=== PATIENT | male | born 1980 ===

== ENCOUNTER 2016-06-12 21:24 | Emergency (ER) | payer OTHER ==
[~2016-06-12] VITALS: Ht 170.2 cm; Wt 120.2 kg
--- NOTE | 2016-06-12 22:02 | ED GENERAL ADULT ---
History of Present Illness General Chief Complaint: General Adult Stated Complaint: "HERE TO GET MY BLOOD PRESSURE CHECKED" Source: patient Exam Limitations: no limitations Triage Note: PT STATES THAT HE WAS SEEN AT [facility] FOR COUGH AND THEY NOTED HIS BP WAS ELEVATED, MANUAL AT THIS TIME 198/96 , DENIES CP/AVELAR, PT WAS ON BP MEDS BUT HIS PMD TOOK HIM OFF THEM 3 YEARS AGO. Triage Nurses Notes Reviewed? yes HPI: Patient is a 36-year-old male who has come to the ED due to elevated pressure ( 188/110) this evening detected at the minute clinic at [facility]. He was there for the cough and yellowish sputum that he has had for about a week. He was found to be hypertensive as well as sent to the ED. Patient has a history of hypertension in the past but stopped taking medications decided by his PCP Dr. Kieran Knox in [place], as he had low blood pressures at that time. Since then he has had fluctuating low and high blood pressures and has not taken any medications. He does not remember what medication he used For his productive cough he has used Benadryl, Mucinex, Tylenol, ibuprofen and amoxicillin and his symptoms has not improved. Denies fever or chills, myalgia, fatigue, shortness of breath, abdominal pain, diarrhea. Reports his kids had similar symptoms about 2 weeks ago. Has not taken the flu shot (VIRI MICHELLE,[facility]) Vital Signs & Intake/Output Vital Signs & Intake/Output Vital Signs Date Time Temp Pulse Resp B/P Pulse O2 O2 Flow FiO2 Ox Delivery Rate 06/12 2327 98.2 96 18 151/93 99 06/12 2255 97.9 94 198/96 06/127 97.9 94 16 198/96 98 Room Air ED Intake and Output 06/13 0000 06/12 1200 Intake Total 0 Output Total Balance 0 Intake, Oral 0 Patient 120.202 kg Weight Allergies Coded Allergies: No Known Allergies (06/12/16) Reconcile Medications Lisinopril 20 MG TABLET 1 TAB PO DAILY HTN (JONATHAN WOLF DO) Past History Travel History Traveled to [place] past 21 day No Medical History Any Pertinent Medical History? see below for history Neurological: NONE EENT: NONE Cardiovascular: hypertension Respiratory: NONE Gastrointestinal: peptic ulcer disease, UGIB several years ago Hepatic: NONE Renal: NONE Musculoskeletal: NONE Psychiatric: NONE Endocrine: NONE Blood Disorders: NONE Cancer(s): NONE SOLO TRUCK DRIVER/Reproductive: NONE Surgical History Surgical History: non-contributory Psychosocial History What is your primary language Bermudian Tobacco Use: Never used ETOH Use: denies use Illicit Drug Use: denies illicit drug use Family History Family History, If Any: FATHER FH: HTN (hypertension) Hx Contributory? Yes (EMILIE MEREDITH MD) Review of Systems Review of Systems Constitutional: Denies: chills, fever, weakness. EENTM: Reports: nasal congestion. Denies: visual changes, eye drainage, throat pain. Respiratory: Reports: cough, sputum production. Denies: short of breath. Cardiovascular: Denies: chest pain, palpitations, peripheral edema. GI: Denies: abdominal pain, changes in stool. Genitourinary: Denies: dysuria, frequency, hematuria. Musculoskeletal: Denies: back pain. Skin: Reports: no symptoms. Neurological/Psychological: Denies: headache, weakness. Hematologic/Endocrine: Denies: bruising, bleeding, polyuria. (EMILIE MEREDITH MD) Physical Exam Physical Exam General Appearance: well developed/nourished, no apparent distress, alert, awake , comfortable Head: atraumatic, normal appearance Eyes: Bilateral: normal appearance, PERRL, EOMI. Ears, Nose, Throat: normal pharynx, normal ENT inspection, hearing grossly normal Neck: normal inspection, supple, full range of motion Respiratory: normal breath sounds, chest non-tender, no respiratory distress Cardiovascular: regular rate/rhythm Peripheral Pulses: 2+ radial (R), 2+ radial (L) Gastrointestinal: normal bowel sounds, soft, non-tender Back: no vertebral tenderness Extremities: normal inspection, normal capillary refill, normal range of motion, no edema Neurologic/Psych: no motor/sensory deficits, awake, alert, oriented x 3 Skin: intact Core Measures ACS in differential dx? No CVA/TIA Diagnosis: No Severe Sepsis Present: No (EMILIE MEREDITH MD) Core Measures Septic Shock Present: No (JONATHAN WOLF DO) Progress Differential Diagnoses I considered the following diagnoses in my evaluation of the patient: [ hypertensive urgency, upper respiratory tract infection] Initial ED EKG: none (EMILIE MEREDITH MD) Plan of Care: Orders Procedure Date/time Status BASIC ELECTROLYTES PLUS BUN&CR 06/12 2227 Complete Laboratory Tests 06/12/16 2309: Anion Gap 11, Estimated GFR > 60, BUN/Creatinine Ratio 15.0 Departure Departure Condition: Stable Referrals: Ousmane KNOX MD (PCP/Family) Departure Forms: Customer Survey General Discharge Information (VIRI MICHELLE,EMILIE) Departure Disposition: STILL A PATIENT Clinical Impression Primary Impression: Hypertension Prescriptions: Current Visit Scripts Lisinopril 1 TAB PO DAILY #20 TAB Resident Co-Sign Statement Statement: ED Attending supervision documentation- [x] I saw and evaluated the patient. I have also reviewed all the pertinent lab results and diagnostic results. I agree with the findings and the plan of care as documented in the Resident's documentation. [] I have reviewed the ED Record and agree with the Resident's documentation. [] Additions or exceptions (if any) to the Resident's note and plan are summarized below: [] I have seen and personally examined the patient and I agree with the resident's evaluation. No chest pain no shortness of breath. Seen at [facility] for bronchitis. Found to have elevated blood pressure. He has asymptomatic hypertension. He's been on antihypertensives in the past. Renal function was evaluated and was normal. He was started on lisinopril. He will follow-up with a [facility] faculty practice physician on Wednesday and have his blood pressure rechecked. (JONATHAN WOLF DO) Critical Care Note Critical Care Note Critical Care Time: non-applicable (JONATHAN WOLF DO)
[2016-06-12] MEDS ORDERED: LISINOPRIL20 M1 PO (23:21)
[2016-06-12 23:27] VITALS: BP 151/93
== END 2016-06-12 23:52 ==
LOC: ERH 21:24
DX: I10 Essential (primary) hypertension (principal); R05 Cough
CPT/HCPCS: 82436

== ENCOUNTER 2017-07-05 01:19 | Emergency (ER) | payer OTHER ==
[~2017-07-05 01:19] MED LIST: LISINOPRIL20 M1 PO
--- NOTE | 2017-07-05 02:26 | RADIOLOGY REPORT ---
EXAMINATION: XR CHEST CLINICAL INFORMATION: Cough COMPARISON: None TECHNIQUE: 2 views of the chest were obtained. FINDINGS: The lungs are well expanded. There is no focal consolidation, edema, or effusion. No pneumothorax. The cardiomediastinal silhouette is within normal limits. No acute osseous abnormality. IMPRESSION: No acute pulmonary findings.
--- NOTE | 2017-07-05 04:22 | ED DYSPNEA/ASTHMA COMPLAINT ---
History of Present Illness General Chief Complaint: Upper Respiratory Sx/Fever Stated Complaint: COUGH Source: patient Exam Limitations: no limitations Vital Signs & Intake/Output Vital Signs & Intake/Output Vital Signs Date Time Temp Pulse Resp B/P B/P Pulse O2 O2 Flow FiO2 Mean Ox Delivery Rate 07/05 0157 98.4 97 22 168/99 97 Allergies Coded Allergies: No Known Allergies (06/12/16) Reconcile Medications Albuterol Sulfate (Proair Hfa) 90 MCG HFA.AER.AD 2 PUF INH Q4-6 PRN PRN sob ( Reported) Azithromycin 250 MG TABLET 1 DP PO AD bronchitis (Reported) 2 the first day followed by 1 for days 2-5 Benzonatate 100 MG CAPSULE 1 CAP PO TID cough (Reported) Lisinopril 20 MG TABLET 1 TAB PO DAILY HTN Prednisone (Deltasone) 20 MG TABLET 3 TAB PO DAILY WHEEZING BEGIN TOMORROW Triage Note: PER PT COUGH FOR> WEEK SEEN AT WALK IN GIVEN TESSALON PERLES WITHOUT EFFECT ALSO ON INHALER AND AZITHROMYCIN ALL WITHOUT EFFECT. CONT WITH COUGH AND SOB. Triage Nurses Notes Reviewed? yes Onset: Gradual Duration: day(s):, continues in ED, intermittent, waxing and waning Severity: mild, moderate Activities at Onset: none HPI: Patient presents for evaluation of worsening dyspnea since last weekend. Patient states that he has had a nonproductive cough and chest tightness over that time. He was evaluated in a walk-in center on Wednesday and began a metered-dose inhaler antibiotics and Tessalon Perles. Patient states that his symptoms have not improved. Past History Travel History Traveled to [place] past 21 day No Medical History Any Pertinent Medical History? 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 No Review of Systems Review of Systems Constitutional: Reports: no symptoms. EENTM: Reports: no symptoms. Respiratory: Reports: see HPI. Cardiovascular: Reports: no symptoms. GI: Reports: no symptoms. Genitourinary: Reports: no symptoms. Musculoskeletal: Reports: no symptoms. Skin: Reports: no symptoms. Neurological/Psychological: Reports: no symptoms. Hematologic/Endocrine: Reports: no symptoms. Immunologic/Allergic: Reports: no symptoms. All Other Systems: Reviewed and Negative Physical Exam Physical Exam Respiratory: SEE BELOW Comments: Gen.: Well-nourished, well-developed, no acute respiratory distress. Head: Normocephalic, atraumatic. Eyes: Normal inspection bilaterally Ears: Normal inspection bilaterally Nose: Normal inspection Throat/mouth : Moist mucosa Neck: Supple, full range of motion, no goiter Heart: Regular rate and rhythm, no murmurs rubs or gallops Lungs: Diminished air entry bilaterally with scattered wheezes Chest: Nontender Back: Normal range of motion Abdomen: Soft, nontender, nondistended, normal bowel sounds Extremities: Normal range of motion grossly, equal radial pulses, no cyanosis clubbing or edema Neurologic: Cranial nerves grossly intact, speech is clear Skin: warm and dry Psychiatric: Calm, cooperative, no apparent delusions or hallucinations Core Measures ACS in differential dx? No CVA/TIA Diagnosis No Sepsis Present: No Sepsis Focused Exam Completed? No Progress Differential Diagnosis: asthma, bronchitis, CHF, COPD, pneumonia Plan of Care: Current Medications Sig/Pj Start time Last Medication Dose Stop Time Status Admin Albuterol Sulfate 3 ML ONCE ONE 07/05 429 UNVr (Proventil) 07/05 430 Ipratropium [place] 2.5 ML ONCE ONE 07/05 429 UNVr (Atrovent) 07/05 430 Prednisone 60 MG ONCE ONE 07/05 429 UNVr 07/05 430 Initial ED EKG: none Departure Departure Disposition: HOME OR SELF CARE Condition: Stable Clinical Impression Primary Impression: Asthmatic bronchitis Qualifiers: Asthma severity: moderate Asthma persistence: persistent Asthma complication type: uncomplicated Qualified Code: J45.40 - Moderate persistent asthma, uncomplicated Referrals: Ousmane Agudelo MD (PCP/Family) Additional Instructions: Continue your current medications as prescribed. Add prednisone as prescribed. Follow-up with your primary care physician this week for reevaluation. Rest, no exertion. Return if any concerns or sudden worsening. Thank you for choosing the [facility] for your care. It was a pleasure to serve you today. Job Martinez M.D. [facility] Departure Forms: Customer Survey General Discharge Information Prescriptions: Current Visit Scripts Prednisone (Deltasone) 3 TAB PO DAILY #12 TAB BEGIN TOMORROW Critical Care Note Critical Care Note Critical Care Time: non-applicable
[2017-07-05] MEDS ORDERED: DELTASONE20 MG PO (04:31)
[2017-07-05 05:54] VITALS: BP 177/85
[2017-07-05] MEDS ORDERED: AZITHROMYCIN250 M1 PO (05:59)
[2017-07-05] MEDS ORDERED: BENZONATATE100 M1 PO (05:59)
[2017-07-05] MEDS ORDERED: PROAIR HFA8.5 GM INH (06:00)
== END 2017-07-05 06:00 ==
LOC: ERH 01:19
DX: J45.909 Unspecified asthma, uncomplicated (principal); R07.89 Other chest pain
CPT/HCPCS: 1263; 1395; 71046

== ENCOUNTER 2018-01-18 09:31 | Emergency (ER) | payer OTHER ==
[~2018-01-18] VITALS: Ht 172.7 cm; Wt 131.5 kg
[~2018-01-18 09:31] MED LIST changes: +AZITHROMYCIN250 M1 PO; +BENZONATATE100 M1 PO; +DELTASONE20 MG PO; +PROAIR HFA8.5 GM INH
[2018-01-18 09:37] VITALS: BP 138/89
--- NOTE | 2018-01-18 10:12 | ED GENERAL ADULT ---
History of Present Illness General Chief Complaint: Lower Extremity Problems Stated Complaint: PAIN RADIATING FROM LOWER BACK TO RIGHT LEG Source: patient Exam Limitations: no limitations Vital Signs & Intake/Output Vital Signs & Intake/Output Vital Signs Date Time Temp Pulse Resp B/P B/P Pulse O2 O2 Flow FiO2 Mean Ox Delivery Rate 01/18 0937 96.4 97 15 138/89 95 Room Air Room Air Allergies Coded Allergies: No Known Allergies (01/18/18) Reconcile Medications Lisinopril 20 MG TABLET 1 TAB PO DAILY HTN Triage Note: PT TO ED FOR C/C OF R LEG "PINCHING" FEELING IN BACK OF R THIGH AND ALSO LOWER R BACK PAIN AND NOW PAIN IS TRAVELING DOWN BACK OF THIGH TO CALF. Triage Nurses Notes Reviewed? yes HPI: Patient is a 37-year-old male with past medical history of hypertension on lisinopril, with no history of sciatica, lumbar issues, radiculopathy, DVT, PE, coagulopathy, or tobacco abuse, who presents today with right lower extremity pain. He states that the pain has been present for several days and is dull in nature, radiating from his right gluteus down through his hamstring and into his calf region. He denies any recent long travel, immobility, unilateral lower extremity edema, dyspnea, or any other symptoms classic for DVT. Upon my initial encounter the patient is anxious but otherwise well-appearing. Past History Travel History Traveled to [place] past 21 day No Medical History Any Pertinent Medical History? 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 No Review of Systems Review of Systems Constitutional: Reports: see HPI. Musculoskeletal: Reports: muscle pain, muscle stiffness. Denies: back pain. All Other Systems: Reviewed and Negative Physical Exam Physical Exam General Appearance: well developed/nourished, no apparent distress, alert, awake , anxious Comments: HEENT: Inspection of the head reveals a normocephalic cranium with no signs of trauma. Ophtho: Extraocular muscles are intact. The sclera are noninjected, and there is no obvious discharge. Neck: No signs of trauma or asymmetry to the neck. Respiratory: The patient exhibits no signs of labored breathing. Cardiac: Non-tachycardic. GI: No gross abdominal distention. : Deferred Back: There is no midline lumbar spine tenderness or other lumbosacral symptoms or abnormality. Extremities: Patient reports a dull, aching pain from his right gluteus through his right hamstring and down through the popliteal region into his right gastrocnemius. He denies any lancinating, shooting pain but rather describes the pain as a dull, aching, throbbing discomfort. Distally the extremity is well perfused without signs of phlegmasia. Brisk capillary refill. Neuro: The patient is oriented to person, place, time, and situation, with no obvious focal motor deficits. Cranial nerves II through XII are intact, and gait is normal. Behavioral: Calm and cooperative, but clearly anxious regarding his symptoms. Dermatologic: Dermatologic examination reveals no obvious rashes or exanthems. Core Measures ACS in differential dx? No CVA/TIA Diagnosis: No Sepsis Present: No Sepsis Focused Exam Completed? No Progress Differential Diagnoses I considered the following diagnoses in my evaluation of the patient: Sciatica, muscle spasm, radiculopathy, tendon injury, ligamentous injury, DVT, deep space infection Plan of Care: Orders Procedure Date/time Status US-DUPLEX VENOUS EXTREM UNI 01/18 1007 Active Current Medications Sig/Pj Start time Last Medication Dose Stop Time Status Admin Ketorolac 30 MG ONCE ONE 01/18 1015 UNVr Tromethamine 01/18 1016 (Toradol) Patient has what seems to be consistent with right-sided sciatic pain versus muscle spasm. He is obese but otherwise has no risk factors for DVT, but I ruled out this diagnosis with a duplex ultrasound which was thankfully negative as documented below. I do not feel that he has any features consistent with cauda equina, and his medical screening examination otherwise negative. He will continue to follow-up with his PCP, soft therapy, and with physical therapy. Discharged home in stable condition. IMPRESSION: No evidence of deep venous thrombosis involving the right lower extremity. There is a 1.6 cm right groin lymph node. DICTATED BY: Binh Diaz MD DATE/TIME DICTATED:01/18/181247 EARTH MOVING TECHNICIAN:YOSELIN DATE/TIME TRANSCRIBED:01/18/181247 Initial ED EKG: none Departure Departure Time of Disposition: 1309 Disposition: HOME OR SELF CARE Condition: Stable Clinical Impression Primary Impression: Leg pain Qualifiers: Laterality: right Qualified Code: M79.604 - Pain in right leg Referrals: Ousmane Agudelo MD (PCP/Family) Additional Instructions: Your ultrasound did not show a clot. Please continue to follow up with your massage therapist, and with a physical therapist as referred by your primary doctor. If you do not have a family doctor, please call the attached number to set up an appointment. Departure Forms: Customer Survey General Discharge Information Critical Care Note Critical Care Note Critical Care Time: non-applicable
--- NOTE | 2018-01-18 12:53 | ULTRASOUND REPORT ---
EXAMINATION: US TRIPLEX LOWER EXTREMITY, RIGHT CLINICAL INFORMATION: Pain and tenderness. COMPARISON: None TECHNIQUE: Color-flow triplex imaging with spectral analysis and compression Doppler were performed on the lower extremity. FINDINGS: Respiratory variation, normal compression and augmented flow are noted throughout the right lower extremity. The visualized common femoral vein, superficial femoral vein, profunda femoral vein, popliteal vein and midcalf peroneal and posterior tibial venous segments show no evidence of deep venous thrombosis. There is no Barker's cyst. There is a 1.6 cm right groin lymph node. IMPRESSION: No evidence of deep venous thrombosis involving the right lower extremity. There is a 1.6 cm right groin lymph node.
[2018-01-18] MEDS ORDERED: CYCLOBENZAPRINE10 M1 PO (13:17)
== END 2018-01-18 13:20 ==
LOC: ERH 09:31
DX: M79.604 Pain in right leg (principal); I10 Essential (primary) hypertension
CPT/HCPCS: 96372; J1885